=== PATIENT | female | born 1950 | race Caucasian/White ===

== ENCOUNTER 2019-08-25 10:09 | Emergency (ER) | payer OTHER, MEDICAID ==
[~2019-08-25] VITALS: Ht 162.6 cm; Wt 64.9 kg
[2019-08-25 10:19] VITALS: BP_SYST 152
[2019-08-25] MEDS ORDERED: KETOROLAC TROMETHAMINE 30 MG VIAL IM ONE (10:45)
[2019-08-25] MEDS ORDERED: AMOXICILLIN/CLAVULANATE POTASSIUM 875 MG TABLET PO ONE (10:45)
[2019-08-25 10:56] VITALS: BP_SYST 152
== END 2019-08-25 10:56 | disposition home or self-care (01) ==
LOC: SED 10:09
DX: K02.9 Dental caries, unspecified (principal)
CPT/HCPCS: 96372; 99283; J1885